=== PATIENT | female | born 1965 | race American Indian/Alaskan Native ===

== ENCOUNTER 2017-07-15 08:27 | Day surgery (SDC) | payer OTHER ==
[2017-07-15] MEDS ORDERED: ECOTRIN PO NR (08:55)
[2017-07-15] MEDS ORDERED: NACL 0.9% 500 ML 500 ML IV SCH (09:00)
[2017-07-15 09:44] LABS: Basophils % (Auto) 0.3 % (0.0-1.8); Eosinophils # (Auto) 0.2 K/mm3 (0.0-0.4); Eosinophils % (Auto) 2.3 % (0.0-4.3); Hematocrit 35.5 % (30.3-42.9); Hemoglobin 11.8 gm/dl (10.1-14.3); Lymphocytes # (Auto) 1.7 K/mm3 (1.2-5.4); Mean Corpuscular HGB Conc 33 % (30-34); Mean Corpuscular Hemoglobin 29 pg (28-32); Mean Corpuscular Volume 86 fl (79-97); Monocytes # (Auto) 0.4 K/mm3 (0.0-0.8); Monocytes % (Auto) 6.5 % (0.0-7.3); Platelet Count 305 K/mm3 (140-440); Red Blood Count 4.14 M/mm3 (3.65-5.03)
[2017-07-15 09:58] LABS: INR 0.85 (0.87-1.13)
[2017-07-15 10:30] LABS: BUN/Creatinine Ratio 15; Blood Urea Nitrogen 9 mg/dL (7-17); Calcium 8.9 mg/dL (8.4-10.2); Hemolysis Index 2
[2017-07-15] MEDS ORDERED: XYLOCAINE 2% INFILTRATI ONE (10:35)
[2017-07-15] MEDS ORDERED: CALAN ONE (10:35)
[2017-07-15] MEDS ORDERED: HEPARIN/NS 5000 UNIT/500ML(CATH LAB) 1,000 ML IR ONE (10:35)
[2017-07-15] MEDS ORDERED: HEPARIN 10,000 UNITS/10 ML ONE (10:35)
[2017-07-15] MEDS ORDERED: NITROGLYCERIN SYRINGE 3 ML ONE (10:36)
[2017-07-15] MEDS ORDERED: SUBLIMAZE ONE (10:37)
[2017-07-15] MEDS: VERSED ONE ×2 (11:02→11:09)
--- NOTE | 2017-07-15 12:08 | Cardiac Catherization Report ---
REFERRING PHYSICIAN: Junior Villasenor MD INDICATION FOR PROCEDURE: The patient is a very pleasant 52-year-old -[place] Citizen female with history of chest pain, abnormal treadmill stress test on antianginal medications, referred for left heart catheterization. Risks, benefits, and potential alternatives were explained in length prior to obtaining informed consent. PROCEDURE IN DETAIL: The patient was brought to the catheterization lab in a postabsorptive state, prepped and draped in sterile fashion. Christiano's test in right hand was normal. A 2 mL of 2% lidocaine used to anesthetize the right wrist. A standard 6-Austrian hydrophilic sheath used to cannulate the right radial artery via modified Seldinger technique. All exchanges performed to exchange a J-tipped guidewire. JL3.5 catheter used to engage the left main. No dampening or ventricularization. Cineangiography performed in all projections. JR4 catheter used to cross the aortic valve under fluoroscopic guidance. Left ventriculography performed in 30 RANKIN and 30 ITALIAN projections via hand injections, catheter flushed. Manual pullback performed with continuous monitoring. Catheter used to engage the right coronary. No dampening or ventricularization. Cineangiography performed in all projections. Due to recurrent chest pain and hypertension and normal coronaries, I proceeded with root aortography with a pigtail catheter and power injector. This is removed from the body over wire, sheath removed. Manual pressure used to achieve hemostasis. I directly supervised the administration of moderate sedation with fentanyl and Versed from 11:02 a.m. to 11:22 a.m. DATA: The patient remained in normal sinus rhythm throughout the procedure. Aortic pressure is 130/70, LV pressure is 130, LVEDP of 20 mmHg. Left ventriculography revealed normal systolic performance with estimated ejection fraction of 55% -60%. No aortic stenosis. CORONARY ANATOMY: This is a right dominant system. Left main is a large and long vessel, no significant disease, bifurcates in left anterior descending and left circumflex. LAD is a moderate-sized vessel, courses anterior intergroove, wraps around the apex, no significant disease. Left circumflex, moderate-sized vessel, courses AV groove. No significant disease. Right coronary is a moderate-sized vessel, courses AV groove, distally bifurcates in the posterior descending, posterolateral branch. No discrete stenosis identified. Root aortography reveals normal contour, normal grade vessel anatomy, no evidence of penetrating aortic ulcer or aortic dissection or aortic insufficiency. There were no immediate complications noted. CONCLUSIONS: 1. No angiographic evidence of significant epicardial coronary disease in this right dominant system. 2. Normal left ventricular systolic performance with estimated ejection fraction of 55% -60%. 3. No evidence of aortic stenosis. 4. Normal root aortography without evidence of dissection, penetrating aortic ulcer, or aortic insufficiency. At this point, recommend continued aggressive primary and secondary risk factor modification blood pressure control, clinically stable, standard radial care. Follow up with Dr. Villasenor in the office. Results of procedure explained in length with the patient and family. All questions and concerns were addressed. JOB# [id number] VITA/WILMER
[2017-07-15 13:07] VITALS: BP 143/78
--- NOTE | 2017-07-15 13:15 | Short Stay Summary ---
Short Stay Documentation Date of service: 07/15/17 - History H&P: obtained from office - Allergies and Medications Current Medications: Allergies Latex, Natural Rubber Adverse Reaction (Verified 07/15/17 09:16) Rash Home Medications Medication Instructions Recorded Confirmed Last Taken Type Losartan-Hctz 50-12.5 mg Tab 1 tab PO DAILY 07/15/17 07/15/17 07/15/17 History 1 Meloxicam [Mobic] 7.5 mg PO DAILY PRN 07/15/17 07/15/17 Unknown History amLODIPine [Norvasc] 10 mg PO DAILY 07/15/17 07/15/17 07/15/17 History 10mg Active Medications Sodium Chloride (Nacl 0.9% 500 Ml) 500 mls @ 50 mls/hr IV DIRECT NIMESH Stop: 07/15/17 18:59 Last Admin: 07/15/17 09:28 Dose: 50 mls/hr - Brief post op/procedure progress note Date of procedure: 07/15/17 Pre-op diagnosis: chest pain; abnormal stress test Post-op diagnosis: same Procedure: [facility] - see dictated cath report Anesthesia: local Estimated blood loss: none Condition: stable - Disposition Condition at discharge: Stable Disposition: DC-01 TO HOME OR SELFCARE - Discharge Diagnoses (1) Chest pain Status: Chronic (2) Abnormal stress test Status: Chronic (3) Normal coronary arteries Status: Chronic Short Stay Discharge Plan Activity: advance as tolerated Diet: regular Wound: open to air, keep clean and dry, per your surgeon's advice Follow up with: FANNIE ANNE MD [Primary Care Provider] - 7 Days Forms: CardCath PCI D/C Instructions
== END 2017-07-15 13:30 | disposition home or self-care (01) ==
LOC: CATHLABREC 08:27
PROVIDERS: ATTEND Internal Medicine
DX: R07.89 Other chest pain (principal); I10 Essential (primary) hypertension; E66.9 Obesity, unspecified; Z79.01 Long term (current) use of anticoagulants; Z98.51 Tubal ligation status
CPT/HCPCS: 36415; 80048; 85025; 85610; 85730; 93005; 93010; 93458; 93567; 99156; C1894; J1644; J2250; J3010; J7040; Q9967